=== PATIENT | male | born 1990 | race Caucasian/White ===

== ENCOUNTER 2021-04-23 20:51 | Emergency (ER) | payer OTHER, SELFPAY ==
--- NOTE | 2021-04-23 21:05 | W.ED.PSYCH ---
HPI - Psych General: Chief Complaint: Alcohol Stated Complaint: ETOH Time Seen by Provider: 04/23/21 21:05 Source: patient and EMS Mode of arrival: EMS Limitations: no limitations History of Present Illness: HPI Narrative: Patient is a 30-year-old male who presents to ED today via EMS with reasons not entirely known. EMS did not give a very detailed report on why they brought patient to the ED. Patient himself tells me he was walking on a trail on in the [facility] near [place] and was reportedly intoxicated. He states he had drank several shots of Irish Honey whiskey. He states he called his mom and does not remember what was said however states shortly after ambulance/police came and picked him up and brought him to the ED. There were no 96-hour hold/affidavits brought with patient. Patient tells me he is not suicidal or homicidal. I did reach out to an officer who responded to the call and according to him he states the patient contacted [facility] and [facility] which then got dispatched to him with report of a patient making suicidal statements and seeing aliens in the [facility]. complaint: other (no complaints currently) Context: recent alcohol abuse Associated psychiatric symptoms: none Associated symptoms: Reports no associated symptoms; Deny auditory hallucinations, visual hallucinations, depression, homicidal ideation or suicidal ideation Treatments prior to arrival: none Review of Systems Const: Denies: fever(s) or chills Card: Denies: chest pain, palpitations, lightheadedness or syncope Resp: Denies: dyspnea GI: Denies: abdominal pain, nausea, vomiting or diarrhea Skin/Breast: Denies: rash Neuro: Denies: headache(s) Psych: Denies: anxiety, depression, visual hallucinations, auditory hallucinations, suicidal ideation or homicidal ideation Physical Exam Const: COMMON NORMALS: no acute distress, patient oriented x3, alert and well nourished GENERAL APPEARANCE: cooperative and well kempt OTHER: slightly intoxicated but articulates well, holds a conversation, answers all questions appropriately Resp: COMMON NORMALS: normal respiratory effort and clear to auscultation bilaterally AUSCULTATION: clear to auscultation bilaterally Cardio: COMMON NORMALS: regular rate and regular rhythm RATE: regular rate RHYTHM: regular rhythm Neuro: FELICIANO COMA SCALE: document [facility] findings Feliciano coma scale eye opening: Spontaneous Mulhall coma scale verbal response: Orientated Mulhall coma scale motor response: Obey commands Mulhall coma scale total score: 15 COMMON NORMALS: patient oriented x3 SENSORIUM/ORIENTATION: Yes alert Psych: COMMON NORMALS: mental status grossly normal, Normal thought process present, cooperative, normal affect, speech normal and activity/motor behavior normal APPEARANCE: Yes grossly normal and Yes well kempt ATTITUDE: Yes calm ACTIVITY/MOTOR BEHAVIOR: Yes appropriate eye contact and No psychomotor agitation SPEECH: Yes normal speech MOOD & AFFECT: Yes euthymic mood THOUGHT PROCESS: Normal thought process present THOUGHT CONTENT: Yes Normal thought content present ATTENTION/CONCENTRATION: Yes attention grossly intact and Yes concentration grossly intact MEMORY/COGNITION: Yes memory grossly intact and Yes cognition grossly intact INSIGHT: Good insight present (Psych) JUDGEMENT: Good judgement present (Psych) Course Consultations: Consultation #1: Dr. Espinoza-will perform telepsych visit Vital Signs: Vital signs: Vital Signs Temperature 97.8 F 04/23/21 21:36 Pulse Rate 94 04/23/21 22:27 Respiratory Rate 16 04/23/21 22:27 Blood Pressure 121/74 04/23/21 22:27 Pulse Oximetry 96 04/23/21 22:27 MDM - Psych MDM Narrative: Medical decision making narrative: Patient arrives much more sober then what he reportedly was in the [facility] when he made those statements and phone calls. He is not suicidal or homicidal. There is no 96-hour hold or affidavit on his chart. Dr. Espinoza was consulted who performed a telemetry psych visit and states patient is clear for discharge. We will call [employer] ride for patient and he will be staying at a hotel here in [facility]. He has [place]/cards to pay for these. He was visualized getting into [employer] vehicle upon discharge. Lab Data: Labs: Lab Results 04/23/21 21:45 Urine Opiates Scre en Negative ng/mL ng /mL (Negative) Ur Barbiturates Sc reen Negative ng/mL ng /mL (Negative) Ur Phencyclidine S crn Negative ng/mL ng /mL (Negative) Ur Amphetamines Sc reen Negative ng/mL ng /mL (Negative) U Benzodiazepines Scrn Negative ng/mL ng /mL (Negative) Urine Cocaine Scre en Negative ng/mL ng /mL (Negative) U Marijuana (THC) Screen Negative ng/mL ng /mL (Negative) Discharge Plan Discharge Patient Disposition: Home Clinical Impression: Alcoholic intoxication Qualifiers: Complication of substance-induced condition: uncomplicated Qualified Code(s): F10.920 - Alcohol use, unspecified with intoxication, uncomplicated Condition: Stable Discharge Orders: Discharge ED (Routine); Ordered 04/23/21 Ordered By: Eve Salvador Patient Instructions: Alcohol Intoxication (ED), Abuse of Alcohol (ED) Coding Level of Care Code ED [employer] for [employer] Fwd Exam Detailed
[2021-04-23 21:36] VITALS: BP 118/69; PULSE 97; RESP 18; TEMP 36.6; O2SAT 96; BMI 32.5
[2021-04-23 22:23] LABS: Amphetamines Screen Urine Negative (Negative); Barbiturates Screen Urine Negative (Negative); Benzodiazepines Screen Urine Negative (Negative); Cocaine Screen Urine Negative (Negative); Opiate Screen Urine Negative (Negative); PCP Screen Urine Negative (Negative); THC Screen Urine Negative (Negative)
[2021-04-23 22:27] VITALS: BP 121/74; PULSE 94; RESP 16; O2SAT 96
--- NOTE | 2021-04-23 23:39 | PC.NURSE ---
Called [employer] for transport to local [facility]; pt is self-pay.
[2021-04-23 23:59] VITALS: BP 128/72; RESP 16
== END 2021-04-24 | disposition home or self-care (01) ==
PROVIDERS: Emergency Medicine; Emergency Provider Physician Assistant
DX: F10.920 Alcohol use, unspecified with intoxication, uncomplicated (principal)
CPT/HCPCS: 80306; 99282; Q3014